=== PATIENT | female | born 1995 | race Caucasian/White ===

== ENCOUNTER 2017-07-23 20:18 | Emergency (ER) | payer SELFPAY | END 2017-07-23 21:03 | disposition left against medical advice (07) | LOC: E/R 20:18 | DX: Z53.21 Procedure and treatment not carried out due to patient leaving prior to being seen by health care provider (principal) ==

== ENCOUNTER 2017-07-23 21:12 | Emergency (ER) | payer SELFPAY ==
[~2017-07-23] VITALS: Ht 167.6 cm; Wt 63.0 kg
[2017-07-23 21:17] VITALS: Ht 167.6 cm; Wt 63.0 kg
--- NOTE | 2017-07-23 22:40 | RADRPT ---
PROCEDURE: XR Chest. CLINICAL INDICATION: Cough. TECHNIQUE: Single frontal view of the chest was obtained COMPARISON: None FINDINGS: The heart and mediastinum are within normal limits. The lungs are clear. There is no pleural effusion or pneumothorax. Orthopedic hardware is noted in the lumbar spine. IMPRESSION: 1. No acute cardiopulmonary disease. RPTAT:AAJJ Physician Nemo Date Time Electronically viewed and signed by Gabriel Norwood Physician on 07/23/2017 22:40 QL/
[2017-07-23 22:56] LABS: ABNORMAL IP MESSAGE 1; HEMATOCRIT 20.5 % (37.0-47.0); MEAN CORPUSCULAR HEMOGLOBIN 35.4 pg (29.0-33.0); MEAN CORPUSCULAR HGB CONC 30.2 g/dl (32.0-37.0); MEAN CORPUSCULAR VOLUME 117.1 fl (82.0-101.0); MEAN PLATELET VOLUME 10.8 fl (7.4-10.4); NUCLEATED RED BLOOD CELLS% 0.3 /100WBC (0.0-0.0); PLATELET COUNT 297 10^3/UL (140-415); RED BLOOD COUNT 1.75 10^6/ul (4.20-5.40); RED CELL DISTRIBUTION WIDTH 24.4 % (11.5-14.5); WHITE BLOOD COUNT 7.1 10^3/ul (4.8-10.8)
[2017-07-23 23:03] LABS: HEMOGLOBIN 6.2 g/dl (12.0-16.0); POSITIVE DIFF @See below
[2017-07-23 23:05] LABS: PATH REVIEW? YES-PATH TO CONFIRM
--- NOTE | 2017-07-23 23:09 | ERD ---
ER Documentation Chief Complaint Chief Complaint swelling both arms, both foot HPI The patient is a 22-year-old female, presenting to the ER because of bilateral upper extremity swelling since , not get better after she delivered a baby about a week ago. She also complained of bilateral upper extremity swelling for about a week . She denies fever, chills, neck pain, chest pain, dyspnea, abdominal pain, vomiting, dysuria, diarrhea. She complains of persistent vaginal spotting after vaginal delivery. She smokes, denies drinking , has history of intravenous heroin abuse. 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 Allergies Allergies: Coded Allergies: No Known Allergy (Unverified , 07/23/17) PMhx/Soc Medical and Surgical Hx: pt denies Medical Hx, pt denies Surgical Hx Hx Alcohol Use: No Hx Substance Use: No Hx Tobacco Use: No Smoking Status: Never smoker Physical Exam Vitals Vital Signs Date Time Temp Pulse Resp B/P Pulse Ox O2 Delivery O2 Flow Rate FiO2 07/23/17 21:17 98.2 121 20 142/91 100 Physical Exam Const: No acute distress. Head: Atraumatic. Eyes: Normal Conjunctiva. ENT: Normal External Ears, Nose and Mouth. Neck: Full range of motion. No meningismus. Resp: Clear to auscultation bilaterally. Cardio: Regular rate and rhythm. Abd: Soft, non distended, normal bowel sounds, non tender. Skin: No petechiae or rashes. Back: No midline or flank tenderness. Ext: Normal bilateral upper extremity edema, nontender. Moderate bilateral lower extremity edema, warmth, mild bilateral calf tenderness Neur: Awake and alert. No focal deficit Psych: Normal Mood and Affect. Result Diagram: 07/23/17219907/23/172199 Results 24 hrs Laboratory Tests Test 07/23/17 22:00 07/23/17 22:22 07/23/17 23:50 White Blood Count 7.110^3/ul Red Blood Count 1.7510^6/ul Hemoglobin 6.2g/dl Hematocrit 20.5% Mean Corpuscular Volume 117.1fl Mean Corpuscular Hemoglobin 35.4pg Mean Corpuscular Hemoglobin Concent 30.2g/dl Red Cell Distribution Width 24.4% Platelet Count 63951^3/UL Mean Platelet Volume 10.8fl Neutrophils % % Segmented Neutrophils % (Manual) 71% Band Neutrophils % (Manual) 1% Lymphocytes % % Lymphocytes % (Manual) 20% Monocytes % % Monocytes % (Manual) 8% Eosinophils % % Basophils % % Nucleated Red Blood Cells % 0.3/100WBC Neutrophils # 10^3/ul Neutrophils # (Manual) 5.010^3/ul Band Neutrophils # 0.010^3/ul Absolute Lymphocytes (Manual) 1.410^3/ul Lymphocytes # 1.410^3/ul Monocytes # 0.610^3/ul Absolute Monocytes (Manual) 0.510^3/ul Eosinophils # 10^3/ul Basophils # 10^3/ul Nucleated Red Blood Cells # 10^3/ul Pathologist Review (Hematology) YES-PATH TO CONFIRM Platelet Estimate NORMAL Polychromasia FEW Anisocytosis 2+ Macrocytosis 1+ Tear Drop Cells FEW Ovalocytes FEW Sodium Level 139mmol/L Potassium Level 4.9mmol/L Chloride Level 105mmol/L Carbon Dioxide Level 26mmol/L Anion Gap 13 Blood Urea Nitrogen 16mg/dl Creatinine 0.67mg/dl Glucose Level 92mg/dl Calcium Level 9.1mg/dl Total Bilirubin 0.2mg/dl Direct Bilirubin 0.00mg/dl Indirect Bilirubin 0.2mg/dl Aspartate Amino Transf (AST/SGOT) 43IU/L Alanine Aminotransferase (ALT/SGPT) 57IU/L Alkaline Phosphatase 115IU/L Total Protein 6.0g/dl Albumin 2.7g/dl Globulin 3.30g/dl Albumin/Globulin Ratio 0.81 Urine Color YELLOW Urine Clarity CLEAR Urine pH 8.0 Urine Specific [place] 1.017 Urine Ketones NEGATIVEmg/dL Urine Nitrite NEGATIVEmg/dL Urine Bilirubin NEGATIVEmg/dL Urine Urobilinogen NEGATIVEmg/dL Urine Leukocyte Esterase TRACELeu/ul Urine Microscopic RBC 26/HPF Urine Microscopic WBC 36/HPF Urine Bacteria FEW/HPF Urine Hemoglobin 2+mg/dL Urine Glucose NEGATIVEmg/dL Urine Total Protein 2+mg/dl Prothrombin Time 12.1Sec Prothrombin Time Ratio 0.9 INR International Normalized Ratio 0.89 Activated Partial Thromboplast Time 21.7Sec Lactic Acid Level 1.8mmol/L [facility] [place] [id number] Radiology Main Line: [phone] DIAGNOSTIC IMAGING REPORT Patient: DIANN TRACY : 1995 Age: 22 Sex: F MR #: [id number] DOS: 07/23/17 2143 Ordering MD: PATT PROCTOR PA-Alanna Location: [facility] Room/Bed: PROCEDURE: XR Chest. CLINICAL INDICATION: Cough. TECHNIQUE: Single frontal view of the chest was obtained COMPARISON: None FINDINGS: The heart and mediastinum are within normal limits. The lungs are clear. There is no pleural effusion or pneumothorax. Orthopedic hardware is noted in the lumbar spine. IMPRESSION: 1. No acute cardiopulmonary disease. RPTAT:AAJJ Physician Nemo Date Time Electronically viewed and signed by Gabriel Norwood Physician on 07/23/2017 22:40 QL/ CC: PATT PROCTOR [place] [id number] Radiology Main Line: [phone] DIAGNOSTIC IMAGING REPORT Patient: DIANN TRACY : 1995 Age: 22 Sex: F MR #: [id number] DOS: 07/24/17 0122 Ordering MD: JOSHUA VANCE MD Location: [facility] Room/Bed: PROCEDURE: CT Abdomen and Pelvis without contrast. CLINICAL INDICATION: pain. TECHNIQUE: CT scan of the abdomen and pelvis without contrast was performed on a multidetector high-resolution CT scanner. The patient was scanned without intravenous contrast. Coronal and sagittal reformatted images were obtained from the axial source images. Images were reviewed on a high-resolution PACS workstation. The total exam CTDI equals 6.38 mGy and the total exam DLP equals 368.19 mGy-cm. DICOM images are available. One or more of the following dose reduction techniques were used: - Automated exposure control. - Adjustment of the mA and/or kV according to patient size. - Use of iterative reconstruction technique. COMPARISON: None. FINDINGS: CT abdomen: The lung bases are clear. The heart size is normal. There is a pericardial effusion measuring at least 18 mm in transverse dimension. Findings are present on axial and sagittal images 11 and 74 respectively. The liver is enlarged measuring 19 cm in long dimension. No focal mass or intrahepatic biliary dilatation. The spleen is enlarged measuring 14 cm in long dimension. The stomach is mildly distended containing large amounts of retained debris. The pancreas as visualized is normal. The gallbladder and biliary tree are unremarkable and there is no evidence for biliary dilatation. The adrenal glands are symmetric and normal. The kidneys are symmetrically unremarkable as well. No renal calculus or obstructive uropathy or mass lesion is seen. The aorta is of normal caliber. There is no retroperitoneal lymphadenopathy. The senthil hepatis region is clear. The bowel and mesentery, as visualized, are equally unremarkable. CT pelvis: The small bowel loops situated within the pelvis are unremarkable. The pelvic organs are normal. The pelvic sidewalls and inguinal regions are clear. The sigmoid colon and rectum are unremarkable. No mass or lymphadenopathy is seen. No acute inflammation is seen. A small amount of free fluid is present inferior to the right hepatic lobe. Moderate amount of hypodense fluid is present within the pelvis. An enlarged uterus is noted. Posterior fusion L1-L4 with bilateral transpedicular screws and vertical rods. Severe disc space loss L4-5 with endplate degenerative changes and a partially calcified disc protrusion measuring 5 mm. IMPRESSION: 1. Hepatosplenomegaly. 2. Pericardial effusion. 3. Enlarged uterus. 4. Nonspecific free fluid located caudal to the inferior right hepatic margin and within the pelvis. 5. Posterior fusion L1 - L4. 6. L4-5: Severe disc space loss with endplate degenerative changes and a partially calcified disc protrusion measuring 5 mm. Call report: Results of this examination called by this radiologist to Dr. Joshua Vance at 02:58 a.m. on 07/24/2017. RPTAT: HRSR Physician Wilbur Date Time Electronically viewed and signed by Physician Wilbur on 07/24/2017 02 :59 RR/ CC: JOSHUA VANCE MD [place] [id number] Radiology Main Line: [phone] DIAGNOSTIC IMAGING REPORT Patient: DIANN TRACY : 1995 Age: 22 Sex: F MR #: [id number] DOS: 07/24/17 2319 Ordering MD: JOSHUA VANCE MD Location: [facility] Room/Bed: PROCEDURE: US Pelvis. CLINICAL INDICATION: Pain, vaginal bleeding, 1 week TECHNIQUE: Multiple sonographic images of the pelvis were obtained utilizing a transabdominal technique. The images were reviewed on a PACS workstation. COMPARISON: None. FINDINGS: The uterus measures 13.7 x 7.7 x 9.7 cm. The thickness of the endometrium equals 2.4 cm. There is heterogeneity of endometrial echotexture. There is suggestion of likely blood products in the endometrial cavity. No definite vascular flow suggestive of retained products of conception is seen in the endometrium. The right ovary measures 3.8 x 1.5 x 1.7 cm and is unremarkable. The left ovary measures 3.1 x 1.3 x 2.3 cm and is unremarkable. Color flow and spectral analysis demonstrates normal arterial and venous flow in both ovaries. No adnexal mass is seen. Small to moderate amount of free fluid in right lower quadrant. No free fluid is seen in Morison's pouch. IMPRESSION: Large uterus. The thickness of the endometrium equals 2.4 cm. There is heterogeneity of endometrial echotexture. There is suggestion of likely blood products in the endometrial cavity. No definite vascular flow suggestive of retained products of conception is seen in the endometrium. Small to moderate amount of free fluid in the right lower quadrant of abdomen. Please see above. RPTAT: HJES .Suraj Simeon MD, Date Time Electronically viewed and signed by .Suraj Simeon MD, on 07/24/2017 01:36 .S/ CC: JOSHUA VANCE MD [place] [id number] Radiology Main Line: [phone] DIAGNOSTIC IMAGING REPORT Patient: DIANN TRACY : 1995 Age: 22 Sex: F MR #: [id number] DOS: 07/24/172318 Ordering MD: JOSHUA VANCE MD Location: [facility] Room/Bed: PROCEDURE: US upper extremity Venous bilateral. CLINICAL INDICATION: Bilateral arm edema, pain TECHNIQUE: Multiple sonographic images of the bilateral upper extremity venous system was obtained utilizing grayscale, color-flow, compressive sonography and doppler imaging with augmentation. The images were reviewed on a PACS workstation. COMPARISON: None. FINDINGS: There is normal compressibility and flow within the bilateral internal jugular vein, subclavian vein, axillary vein, brachial, basilic,, radial and ulnar veins and in the left cephalic vein. There is noncompressible occlusive thrombus in the cephalic vein in the right upper arm. There is no evidence of thrombus in the cephalic vein in the right forearm IMPRESSION: Noncompressible occlusive thrombus in the cephalic vein in the right upper arm. Otherwise no evidence of thrombus in the veins of bilateral upper extremities. RPTAT: HJES .Suraj Simeon MD, MD Date Time Electronically viewed and signed by .Suraj Simeon MD, MD on 07/24/2017 00:45 .S/ CC: JOSHUA VANCE MD [place] [id number] Radiology Main Line: [phone] DIAGNOSTIC IMAGING REPORT Patient: DIANN TRACY : 1995 Age: 22 Sex: F MR #: [id number] DOS: 07/24/172318 Ordering MD: JOSHUA VANCE MD Location: [facility] Room/Bed: PROCEDURE: Ultrasound examination of bilateral lower extremities veins with Doppler. CLINICAL INDICATION: Leg pain and swelling. TECHNIQUE: Multiple sonographic images of bilateral lower extremity venous systems were performed with grullon scale and color Doppler. COMPARISON: None. FINDINGS: Bilateral common femoral, superficial femoral and popliteal veins demonstrate normal color flow, waveforms, compression and response to augmentation. There is no evidence of deep venous thrombosis. IMPRESSION: No evidence of deep venous thrombosis within bilateral lower extremities. .Panchito Thurston MD, Date Time Electronically viewed and signed by .Panchito Thurston MD, on 07/24/2017 01:14 .T/ CC: JOSHUA VANCE MD MEDICAL MAKING DECISION: The patient is a 22-year-old female, presenting with acute bilateral lower extremity cellulitis, acute cephalic vein thrombus, acute pericardial effusion, persistent vaginal bleeding after delivery, symptomatic anemia, hepatosplenomegaly. She was treated with clindamycin IV for acute bilateral cellulitis The differential diagnoses considered include but are not limited to pneumonia, cellulitis, DVT, endocarditis, recurrent cellulitis of the spine Consultation: I discussed the patient with the on-call tool room lathe operator , came to the ER to evaluate patient. She does not think the patient required emergent D&C Departure Diagnosis: Primary Impression: Symptomatic anemia Additional Impressions: Pericardial effusion Cephalic vein thrombosis Vaginal bleeding Hepatosplenomegaly Condition: Stable Comments I discussed the findings with the patient. I discussed the patient with the hospitalist Dr. Madison at 3:10 AM who was made aware of the lab, the treatment, the patient condition. The patient is admitted to telemetry The patient's blood pressure was elevated (>120/80) but appears stable without evidence of hypertension emergency or urgency. The patient was counseled about the risks of hypertension and urged to pursue outpatient monitoring and therapy within a week with their primary care physician. Disclaimer: Inadvertent spelling and grammatical errors are likely due to EHR/ dictation software use and do not reflect on the overall quality of patient care. Also, please note that the electronic time recorded on this note does not necessarily reflect the actual time of the patient encounter. JOSHUA VANCE MD Jul 23, 2017 23:09
[2017-07-23 23:15] LABS: ALBUMIN 2.7 g/dl (3.3-4.9); ALBUMIN/GLOBULIN RATIO 0.81; BILIRUBIN,INDIRECT 0.2 mg/dl (0-1.1); BILIRUBIN,TOTAL 0.2 mg/dl (0.2-1.3); CALCIUM 9.1 mg/dl (8.4-10.2); CREATININE 0.67 mg/dl (0.44-1.00); POTASSIUM 4.9 mmol/L (3.5-5.1)
[2017-07-23 23:22] LABS: ADD UMIC YES; UR ASCORBIC ACID NEGATIVE (NEGATIVE); UR BACTERIA FEW /HPF (NONE SEEN); UR BILIRUBIN (Dip) NEGATIVE (NEGATIVE); UR BLOOD (Dip) 2+ mg/dL (NEGATIVE); UR CLARITY CLEAR (CLEAR); UR COLOR YELLOW (YELLOW); UR GLUCOSE (Dip) NEGATIVE (NEGATIVE); UR KETONES (Dip) NEGATIVE (NEGATIVE); UR LEUKOCYTE ESTERASE (Dip) TRACE Leu/ul (NEGATIVE); UR NITRITE (Dip) NEGATIVE (NEGATIVE); UR RBC 26 /HPF (0-5); UR SPECIFIC GRAVITY (Dip) 1.017 (1.003-1.030); UR TOTAL PROTEIN (Dip) 2+ mg/dl (NEGATIVE); UR UROBILINOGEN (Dip) NEGATIVE (NEGATIVE)
[2017-07-24 00:29] LABS: INR 0.89; PROTIME 12.1 Sec (11.9-14.9); PT RATIO 0.9
[2017-07-24 00:30] LABS: PARTIAL THROMBOPLASTIN TIME 21.7 Sec (25.0-35.0)
--- NOTE | 2017-07-24 00:45 | RADRPT ---
PROCEDURE: US upper extremity Venous bilateral. CLINICAL INDICATION: Bilateral arm edema, pain TECHNIQUE: Multiple sonographic images of the bilateral upper extremity venous system was obtained utilizing grayscale, color-flow, compressive sonography and doppler imaging with augmentation. The images were reviewed on a PACS workstation. COMPARISON: None. FINDINGS: There is normal compressibility and flow within the bilateral internal jugular vein, subclavian vein , axillary vein, brachial, basilic,, radial and ulnar veins and in the left cephalic vein. There is noncompressible occlusive thrombus in the cephalic vein in the right upper arm. There is no evidenc e of thrombus in the cephalic vein in the right forearm IMPRESSION: Noncompressible occlusive thrombus in the cephalic vein in the right upper arm. Otherwise no evidenc e of thrombus in the veins of bilateral upper extremities. RPTAT: HJES .Suraj Simeon MD, Date Time Electronically viewed and signed by .Suraj Simeon MD, on 07/24/2017 00:45 .S/
--- NOTE | 2017-07-24 01:15 | RADRPT ---
PROCEDURE: Ultrasound examination of bilateral lower extremities veins with Doppler. CLINICAL INDICATION: Leg pain and swelling. TECHNIQUE: Multiple sonographic images of bilateral lower extremity venous systems were performed with grullon scale and color Doppler. COMPARISON: None. FINDINGS: Bilateral common femoral, superficial femoral and popliteal veins demonstrate normal color flow, wav eforms, compression and response to augmentation. There is no evidence of deep venous thrombosis. IMPRESSION: No evidence of deep venous thrombosis within bilateral lower extremities. .Panchito Thurston MD, MD Date Time Electronically viewed and signed by .Panchito Thurston MD, MD on 07/24/2017 01:14 .T/
--- NOTE | 2017-07-24 01:36 | RADRPT ---
PROCEDURE: US Pelvis. CLINICAL INDICATION: Pain, vaginal bleeding, 1 week TECHNIQUE: Multiple sonographic images of the pelvis were obtained utilizing a transabdominal tech nique. The images were reviewed on a PACS workstation. COMPARISON: None. FINDINGS: The uterus measures 13.7 x 7.7 x 9.7 cm. The thickness of the endometrium equals 2.4 cm. There is he terogeneity of endometrial echotexture. There is suggestion of likely blood products in the endometr ial cavity. No definite vascular flow suggestive of retained products of conception is seen in the e ndometrium. The right ovary measures 3.8 x 1.5 x 1.7 cm and is unremarkable. The left ovary measures 3.1 x 1.3 x 2.3 cm and is unremarkable. Color flow and spectral analysis demonstrates normal arter ial and venous flow in both ovaries. No adnexal mass is seen. Small to moderate amount of free flui d in right lower quadrant. No free fluid is seen in Morison's pouch. IMPRESSION: Large uterus. The thickness of the endometrium equals 2.4 cm. There is heterogeneity of e ndometrial echotexture. There is suggestion of likely blood products in the endometrial cavity. No d efinite vascular flow suggestive of retained products of conception is seen in the endometrium. Smal l to moderate amount of free fluid in the right lower quadrant of abdomen. Please see above. RPTAT: HJES .Suraj iSmeon MD, MD Date Time Electronically viewed and signed by .Suraj Simeon MD, MD on 07/24/2017 01:36 .S/
[2017-07-24 02:52] LABS: LYMPHOCYTES # 1.4 10^3/ul (0.8-2.9); MONOCYTE # 0.6 10^3/ul (0.3-0.9); MONOCYTES % (M) 8 % (0-11)
[2017-07-24 02:54] LABS: PLATELET ESTIMATE NORMAL
[2017-07-24 02:56] LABS: ANISOCYTOSIS 2+ (0-0)
[2017-07-24 02:57] LABS: OVALOCYTES FEW (0-0); TEAR DROP CELLS FEW (0-0)
[2017-07-24 02:59] LABS: POLYCHROMASIA FEW (0-0)
--- NOTE | 2017-07-24 02:59 | RADRPT ---
PROCEDURE: CT Abdomen and Pelvis without contrast. CLINICAL INDICATION: pain. TECHNIQUE: CT scan of the abdomen and pelvis without contrast was performed on a multidetector hig h-resolution CT scanner. The patient was scanned without intravenous contrast. Coronal and sagittal reformatted images were obtained from the axial source images. Images were reviewed on a high-resol [employer] PACS workstation. The total exam CTDI equals 6.38 mGy and the total exam DLP equals 368.19 mGy -cm. DICOM images are available. One or more of the following dose reduction techniques were used: - Automated exposure control. - Adjustment of the mA and/or kV according to patient size. - Use of iterative reconstruction technique. COMPARISON: None. FINDINGS: CT abdomen: The lung bases are clear. The heart size is normal. There is a pericardial effusion measuring at le ast 18 mm in transverse dimension. Findings are present on axial and sagittal images 11 and 74 respe ctively. The liver is enlarged measuring 19 cm in long dimension. No focal mass or intrahepatic biliary dila tation. The spleen is enlarged measuring 14 cm in long dimension. The stomach is mildly distended c ontaining large amounts of retained debris. The pancreas as visualized is normal. The gallbladder a nd biliary tree are unremarkable and there is no evidence for biliary dilatation. The adrenal gland s are symmetric and normal. The kidneys are symmetrically unremarkable as well. No renal calculus or obstructive uropathy or mass lesion is seen. The aorta is of normal caliber. There is no retroperitoneal lymphadenopathy. The senthil hepatis r egion is clear. The bowel and mesentery, as visualized, are equally unremarkable. CT pelvis: The small bowel loops situated within the pelvis are unremarkable. The pelvic organs are normal. T he pelvic sidewalls and inguinal regions are clear. The sigmoid colon and rectum are unremarkable. No mass or lymphadenopathy is seen. No acute inflammation is seen. A small amount of free fluid is present inferior to the right hepatic lobe. Moderate amount of hypodense fluid is present within th e pelvis. An enlarged uterus is noted. Posterior fusion L1-L4 with bilateral transpedicular screws and vertical rods. Severe disc space los s L4-5 with endplate degenerative changes and a partially calcified disc protrusion measuring 5 mm. IMPRESSION: 1. Hepatosplenomegaly. 2. Pericardial effusion. 3. Enlarged uterus. 4. Nonspecific free fluid located caudal to the inferior right hepatic margin and within the pelvis . 5. Posterior fusion L1 - L4. 6. L4-5: Severe disc space loss with endplate degenerative changes and a partially calcified disc pr otrusion measuring 5 mm. Call report: Results of this examination called by this radiologist to Dr. Joshua De at 02:58 a. m. on 07/24/2017. RPTAT: HRSR Physician Wilbur Date Time Electronically viewed and signed by Cindy Quarles Physician on 07/24/2017 02:59 RR/
--- NOTE | 2017-07-24 03:31 | CONS ---
Date/Time of Note Date/Time of Note DATE: 07/24/17 TIME: 03:25 Assessment/Plan Assessment/Plan Additional Assessment/Plan 22 y/o s/p 1 week ago with anemia. Patient was likely anemia prior to delivery with acute blood loss during delivery. Bleeding and US findings are appropriate. Will admit for transfusion. Consult as needed. Consultation Date/Type/Reason Admit Date/Time Reason for Consultation Anemia s/p Hx of Present Illness 22 y/o s/p 1 week ago at [facility]. Patient presented with bilateral lower extremity swelling. Reports bleeding is not excessive, using 5-6 pad daily since delivery. Reports anemia during the . No f/c/n/v. Patient has h/o substance abuse, planning to go to Rehab. Per HPI. Other systems negative. Past Medical History Denies Past Surgical History Back surgery Family History Significant Family History: no pertinent family hx Social History Smoking Status: Never smoker Other Social History Multisubstance use Exam/Review of Systems Vital Signs Vitals Vital Signs Date Time Temp Pulse Resp B/P Pulse Ox O2 Delivery O2 Flow Rate FiO2 07/23/17 21:17 98.2 121 20 142/91 100 Exam Gen: NAD HEENT: NCAT CV: RRR Pulm: CTAB Abd: FF Back: no CVAT Ext: NT Results Result Diagram: 07/23/17219907/23/172199 Results 24 hrs Laboratory Tests Test 07/23/17 22:00 07/23/17 22:22 07/23/17 23:50 White Blood Count 7.1 Red Blood Count 1.75 L Hemoglobin 6.2 *L Hematocrit 20.5 L Mean Corpuscular Volume 117.1 H Mean Corpuscular Hemoglobin 35.4 H Mean Corpuscular Hemoglobin Concent 30.2 L Red Cell Distribution Width 24.4 H Platelet Count 297 Mean Platelet Volume 10.8 H Neutrophils % Segmented Neutrophils % (Manual) 71 Band Neutrophils % (Manual) 1 Lymphocytes % Lymphocytes % (Manual) 20 Monocytes % Monocytes % (Manual) 8 Eosinophils % Basophils % Nucleated Red Blood Cells % 0.3 H Neutrophils # Neutrophils # (Manual) 5.0 Band Neutrophils # 0.0 Absolute Lymphocytes (Manual) 1.4 Lymphocytes # 1.4 Monocytes # 0.6 Absolute Monocytes (Manual) 0.5 Eosinophils # Basophils # Nucleated Red Blood Cells # Pathologist Review (Hematology) YES-PATH TO CONFIRM Platelet Estimate NORMAL Polychromasia FEW Anisocytosis 2+ Macrocytosis 1+ Tear Drop Cells FEW Ovalocytes FEW Sodium Level 139 Potassium Level 4.9 Chloride Level 105 Carbon Dioxide Level 26 Anion Gap 13 Blood Urea Nitrogen 16 Creatinine 0.67 Glucose Level 92 Calcium Level 9.1 Total Bilirubin 0.2 Direct Bilirubin 0.00 Indirect Bilirubin 0.2 Aspartate Amino Transf (AST/SGOT) 43 Alanine Aminotransferase (ALT/SGPT) 57 Alkaline Phosphatase 115 Total Protein 6.0 L Albumin 2.7 L Globulin 3.30 H Albumin/Globulin Ratio 0.81 Urine Color YELLOW Urine Clarity CLEAR Urine pH 8.0 Urine Specific [place] 1.017 Urine Ketones NEGATIVE Urine Nitrite NEGATIVE Urine Bilirubin NEGATIVE Urine Urobilinogen NEGATIVE Urine Leukocyte Esterase TRACE A Urine Microscopic RBC 26 H Urine Microscopic WBC 36 H Urine Bacteria FEW A Urine Hemoglobin 2+ H Urine Glucose NEGATIVE Urine Total Protein 2+ H Prothrombin Time 12.1 Prothrombin Time Ratio 0.9 INR International Normalized Ratio 0.89 Activated Partial Thromboplast Time 21.7 L Lactic Acid Level 1.8 Imaging Free Text/Dictation Pelvic US: The uterus measures 13.7 x 7.7 x 9.7 cm. The thickness of the endometrium equals 2.4 cm. There is heterogeneity of endometrial echotexture. There is suggestion of likely blood products in the endometrial cavity. No definite vascular flow suggestive of retained products of conception is seen in the endometrium. The right ovary measures 3.8 x 1.5 x 1.7 cm and is unremarkable. The left ovary measures 3.1 x 1.3 x 2.3 cm and is unremarkable. Color flow and spectral analysis demonstrates normal arterial and venous flow in both ovaries. No adnexal mass is seen. Small to moderate amount of free fluid in right lower quadrant. No free fluid is seen in Morison's pouch. ROSE CARPENTER. Jul 24, 2017 03:31
[2017-07-24] MEDS ORDERED: CLINDAMYCIN 600 MG/D5W (PMX) 50 ML IVPB SCH (04:30)
== END 2017-07-24 04:15 | disposition left against medical advice (07) ==
LOC: FTE 21:12
DX: O90.81 Anemia of the puerperium (principal); I31.3 Pericardial effusion (noninflammatory); I82.613 Acute embolism and thrombosis of superficial veins of upper extremity, bilateral; R16.2 Hepatomegaly with splenomegaly, not elsewhere classified; O99.53 Diseases of the respiratory system complicating the puerperium; O72.2 Delayed and secondary postpartum hemorrhage; O26.62 Liver and biliary tract disorders in childbirth
CPT/HCPCS: 71010; 74176; 76856; 80053; 81001; 83605; 85025; 85610; 85730; 86850; 86900; 86901; 86920; 87040; 87086; 93970

== ENCOUNTER 2018-10-29 05:39 | Emergency (ER) | payer BC, MEDICAID ==
[~2018-10-29] VITALS: Wt 65.3 kg
[2018-10-29] MEDS ORDERED: LORAZEPAM 2 MG INJ IM STA (06:58)
[2018-10-29] MEDS ORDERED: HALOPERIDOL 5 MG INJ IM STA (06:58)
[2018-10-29] MEDS ORDERED: DIPHENHYDRAMINE 50 MG INJ IM ONE (07:00)
[2018-10-29] MEDS ORDERED: OLANZAPINE 10 MG VIAL IM ONE (08:30)
--- NOTE | 2018-10-29 08:55 | ERD ---
ER Documentation Chief Complaint Chief Complaint DIZZINESS X'S 2 DAYS HPI This is a 23-year-old female that was brought into the emergency department initially complaining of dizziness. She indicates that the dizziness has been present for 48 hours after [facility]. She indicates she has been in rehab and had a history of amphetamine abuse and heroin abuse. The patient had been in the triage department of the emergency room going through garbage, screaming and stating that her daughter was sitting with strangers. When I went to the bedside to evaluate the patient she was rambling with multiple complaints but denied any chest pain. She denied a headache. She denies shortness of breath. She kept stating that her father has custody of her child but she saw her child in the emergency department with a stranger. She also indicated that she has a twin sister who was murdered. She was stating that she feels everybody is out to get her and did not want anybody touching her. She denied any trauma. There is no drug paraphernalia. ROS All systems reviewed and are negative except as per history of present illness. Medications Home Meds Reported Medications [none] Unknown Strength No Conflict Check 09/14/18 Allergies Allergies: Coded Allergies: No Known Allergy (Unverified , 10/29/18) PMhx/Soc History of Surgery: Yes (back) Anesthesia Reaction: No Hx Neurological Disorder: No Hx Respiratory Disorders: No Hx Cardiac Disorders: No Hx Psychiatric Problems: Yes (depression , anxiety ) Hx Miscellaneous Medical Probl: Yes (drug abuse ) Hx Alcohol Use: Yes (socially) Hx Substance Use: Yes (marijuana, cocaine) Hx Tobacco Use: Yes Smoking Status: Current some day smoker Physical Exam Vitals Vital Signs Date Temp Pulse Resp B/P (MAP) Pulse Ox O2 O2 Flow FiO2 Time Delivery Rate 10/29/18 97.2 110 20 133/81 99 05:43 (98) Physical Exam Constitutional:Well-developed. Well-nourished. Very agitated. HEENT:Normocephalic. Atraumatic.Pupils were 5 mm equal round reactive to light. Dry mucous membranes.No tonsillar exudates. Neck: No nuchal rigidity. No lymphadenopathy. No posterior cervical spine tenderness or step-offs. Respiratory: Not using accessory muscles of respiration.Lungs were clear to auscultation bilaterally. No rhonchi. No rales. No wheezing. Cardiovascular: Regular rate regular rhythm.No murmurs. No rubs were appreciated.S1, S2 normal. Distal pulses are palpable 2+ bilaterally. GI: Abdomen was soft. Nontender. Non Distended. No pulsatile abdominal masses or bruits. No rebound. No guarding. Bowel sounds were present and normal. Muscle skeletal: Full range of motion of both the upper and lower extremities bilaterally.Normal muscle tone.No assymetrical calf tenderness or swelling. Skin: No petechia, no purpura. No lesions on the palms or the soles of the feet. No maculopapular rash. NEURO: Patient was alert, awake, orientated x person place and time.No facial droop. Gait observed and normal with no ataxia.Speech had regular rate and rhythm. No focal neurological deficits. PSYCH: Patient was very agitated. She was screaming and paranoid. She felt t hat nursing staff and myself were out to get her. She started hitting people. She denied any suicidal ideations. She was experiencing homicidal thoughts that she stated she wanted to "kill the security analyst who stole her child." Result Diagram: 10/29/18 0808 10/29/18 0808 Results 24 hrs Laboratory Tests Test 10/29/18 07:44 10/29/18 07:45 10/29/18 08:08 Urine Color STRAW Urine Clarity CLEAR Urine pH 7.0 Urine Specific [place] 1.014 Urine Ketones NEGATIVE mg/dL Urine Nitrite NEGATIVE mg/dL Urine Bilirubin NEGATIVE mg/dL Urine Urobilinogen NEGATIVE mg/dL Urine Leukocyte Esterase TRACE Margarita/ul Urine Microscopic RBC 1 /HPF Urine Microscopic WBC 11 /HPF Urine Squamous Epithelial Cells FEW /HPF Urine Bacteria FEW /HPF Urine Hemoglobin 1+ mg/dL Urine Glucose NEGATIVE mg/dL Urine Total Protein NEGATIVE mg/dl Urine Opiates Screen Positive Urine Barbiturates Negative Urine Amphetamines Screen Positive Urine Benzodiazepines Screen Negative Urine Cocaine Screen Negative Urine Cannabinoids Positive POC Beta HCG, Qualitative NEGATIVE White Blood Count 4.1 10^3/ul Red Blood Count 3.79 10^6/ul Hemoglobin 10.8 g/dl Hematocrit 34.7 % Mean Corpuscular Volume 91.6 fl Mean Corpuscular Hemoglobin 28.5 pg Mean Corpuscular 31.1 g/dl Hemoglobin Concent Red Cell Distribution Width 21.2 % Platelet Count 83 10^3/UL Mean Platelet Volume 11.5 fl Immature Granulocytes % 0.200 % Neutrophils % 52.1 % Lymphocytes % 37.8 % Monocytes % 9.9 % Eosinophils % 0.0 % Basophils % 0.0 % Nucleated Red Blood Cells % 0.0 /100WBC Immature Granulocytes # 0.010 10^3/ul Neutrophils # 2.2 10^3/ul Lymphocytes # 1.6 10^3/ul Monocytes # 0.4 10^3/ul Eosinophils # 0.0 10^3/ul Basophils # 0.0 10^3/ul Nucleated Red Blood Cells # 0.0 10^3/ul Sodium Level 141 mmol/L Potassium Level 4.3 mmol/L Chloride Level 105 mmol/L Carbon Dioxide Level 26 mmol/L Anion Gap 10 Blood Urea Nitrogen 10 mg/dl Creatinine 0.53 mg/dl Est Glomerular Filtrat > 60 mL/min Rate mL/min Glucose Level 88 mg/dl Calcium Level 9.7 mg/dl Total Bilirubin 0.4 mg/dl Direct Bilirubin 0.00 mg/dl Indirect Bilirubin 0.4 mg/dl Aspartate Amino 49 IU/L Transf (AST/SGOT) Alanine 46 IU/L Aminotransferase (ALT/SGPT) Alkaline Phosphatase 74 IU/L Total Protein 7.7 g/dl Albumin 4.3 g/dl Globulin 3.40 g/dl Albumin/Globulin Ratio 1.26 Salicylates Level < 1.0 mg/dl Acetaminophen Level < 10.0 ug/ml Ethyl Alcohol Level < 10.0 mg/dl Current Medications Medications Dose Sig/Marlys Start Time Status Last (Trade) Ordered Route PRN Stop Time Admin Dose Reason Admin Lorazepam 2 mg ONCE STAT 10/29/18 DC 10/29/18 (Ativan) IM 06:58 08:08 10/29/18 07:00 Haloperidol 5 mg ONCE STAT 10/29/18 DC 10/29/18 (Haldol) IM 06:58 08:09 10/29/18 07:00 50 mg ONCE ONCE 10/29/18 DC 10/29/18 Diphenhydrami IM 07:00 08:08 ne HCl 10/29/18 07:01 (Benadryl) Olanzapine 10 mg ONCE ONCE 10/29/18 DC (Zyprexa) IM 08:30 10/29/18 08:31 Procedures/MDM This patient presented to the emergency department with acute psychosis and my differential diagnosis included but was not limited to ruling out life threatening causes of acute psychosis such as Wernickes encephalopathy, hypoxia, hypoglycemia, hypertensive encephalopathy, intracerebral hemorrhage, meningitis, poisoning. After my evaluation and workup on the patient I was able to exclude medical and reversible causes of the patients psychosis. It was my clinical impression the patients symptoms were an exacerbation of a possible psychiatric disorder versus drug encephalopathy from amphetamine abuse as the patient's tox screen was positive for amphetamines.; therefore, the patient was medically cleared by myself at this time for psychiatric evaluation and possible transfer. The patient did become severely agitated during medical assessment. Reassurance and verbal de-escalation were unsuccessful in calming the patient down. The agitation was impeding medical evaluation and treatment, with potential for the patient to harm themselves or others; therefore, pharmacological sedation was required. She received IM Haldol Ativan and Benadryl. However this did not improve the patient symptoms that she was still screaming and attempting to leave the hospital. I felt the patient was a threat to herself and others as she was very violent. She received Zyprexa IM at this time. She was now resting comfortably. Departure Diagnosis: Primary Impression: Amphetamine abuse Additional Impression: Psychosis Psychosis type: unspecified psychosis type Qualified Codes: F29 - Unspecified psychosis not due to a substance or known physiological condition Condition: Serious CONCETTA OCONNOR MD Oct 29, 2018 08:55
--- NOTE | 2018-10-29 18:09 | PSY ---
Date/Time of Note Date/Time of Note DATE: 10/29/18 TIME: 21:03 Psychiatric Subjective Eval Consent Pt consented to telemedicine: Yes Subjective Evaluation Patient location: emergency Chief Complaint: DIZZINESS X'S 2 DAYS History of present illness HPI: 23 yo female with ho severe drug use, per attending note, "This is a 23-year-old female that was brought into the emergency department initially complaining of dizziness. She indicates that the dizziness has been present for 48 hours after she was [facility]. She indicates she has been in rehab and had a history of amphetamine abuse and heroin abuse. The patient had been in the triage department of the emergency room going through garbage, screaming and stating that her daughter was sitting with strangers. When I went to the bedside to evaluate the patient she was rambling with multiple complaints but denied any chest pain. She denied a headache. She denies shortness of breath. She kept stating that her father has custody of her child but she saw her child in the emergency department with a stranger. She also indicated that she has a twin sister who was murdered. She was stating that she feels everybody is out to get her and did not want anybody touching her. She denied any trauma. There is no drug paraphernalia." spoke with pt.She denies ah or psychosis, says she is just dizzy. Denies drug use. Denies si. Denies any problems. SAys she wants to go home. As per note above, and per nurse, pt came in very agitated, pressured speech, delusional, perseverating on daughter and the drugs she was using. Required IM meds due to agitation Past Psych Hx: reports that she is just on risperidone and is dizzy, was vague and evasive and somewhat disorganized PMHx: denies nkda Meds: reports "risperidone MSE: disheveled, appears in distress, numerous tattoos on arms, decreased prosody of speech, dysthymic, labile, vague slightly disorganized, evasive, denies psychosis or avh or si /hi impaired reliability/insight Imp: 23 yo female gravely disabled per hx and exam, impaired reliability recommend 5150 for now and further eval, parallel hx from father to obtain information about baseline utox uhcg For moderate agitation Zyprexa 5mg po prn For severe agitation chlorpromazine 25mg im prn Medical history Problems Medical Problems: (1) Amphetamine abuse Status: Acute (2) Cellulitis Status: Acute (3) Cephalic vein thrombosis Status: Acute (4) Dizziness Status: Acute (5) Head ache Status: Acute (6) Hepatosplenomegaly Status: Acute (7) Patient left before evaluation by physician Status: Acute (8) Patient left before triage assessment Status: Acute (9) Patient left without being seen Status: Acute (10) Pericardial effusion Status: Acute (11) Psychosis Status: Acute (12) Symptomatic anemia Status: Acute (13) Vaginal bleeding Status: Acute Allergies: Coded Allergies: No Known Allergy (Unverified , 10/29/18) Psychiatric Objective Eval Mental Status Examination: Laboratory Results Laboratory Tests Test 10/29/18 07:44 10/29/18 07:45 10/29/18 08:07 10/29/18 08:08 Urine Color STRAW Urine Clarity CLEAR Urine pH 7.0 Urine Specific 1.014 [place] Urine Ketones NEGATIVE mg/dL Urine Nitrite NEGATIVE mg/dL Urine Bilirubin NEGATIVE mg/dL Urine NEGATIVE mg/dL Urobilinogen Urine Leukocyte TRACE Margarita/ul Esterase Urine Microscopic 1 /HPF RBC Urine Microscopic 11 /HPF WBC Urine Squamous FEW /HPF Epithelial Cells Urine Bacteria FEW /HPF Urine Hemoglobin 1+ mg/dL Urine Glucose NEGATIVE mg/dL Urine Total NEGATIVE mg/dl Protein Urine Opiates Positive Screen Urine Negative Barbiturates Urine Positive Amphetamines Screen Urine Negative Benzodiazepines Screen Urine Cocaine Negative Screen Urine Positive Cannabinoids POC Beta HCG, NEGATIVE Qualitative Serum HCG, NEGATIVE Qualitative White Blood Count 4.1 10^3/ul Red Blood Count 3.79 10^6/ul Hemoglobin 10.8 g/dl Hematocrit 34.7 % Mean Corpuscular 91.6 fl Volume Mean Corpuscular 28.5 pg Hemoglobin Mean Corpuscular 31.1 g/dl Hemoglobin Concen t Red Cell 21.2 % Distribution Width Platelet Count 164 10^3/UL Mean Platelet 11.5 fl Volume Immature 0.200 % Granulocytes % Neutrophils % 52.1 % Segmented 48 % Neutrophils % (Manual) Lymphocytes % 37.8 % Lymphocytes % 37 % (Manual) Reactive 5 % Lymphocytes % (Manual) Monocytes % 9.9 % Monocytes % 10 % (Manual) Eosinophils % 0.0 % Basophils % 0.0 % Nucleated Red 0.0 /100WBC Blood Cells % Immature 0.010 10^3/ul Granulocytes # Neutrophils # 2.2 10^3/ul Lymphocytes 1.5 10^3/ul (Manual) Lymphocytes # 1.6 10^3/ul Reactive 0.2 10^3/ul Lymphocytes # Monocytes # 0.4 10^3/ul Monocytes # 0.4 10^3/ul (Manual) Eosinophils # 0.0 10^3/ul Basophils # 0.0 10^3/ul Nucleated Red 0.0 10^3/ul Blood Cells # Giant Platelets 1 % Platelet @See below Morphology Comment Polychromasia 3+ Poikilocytosis 2+ Anisocytosis 3+ Microcytosis 2+ Tear Drop Cells 1+ Ovalocytes 1+ Prothrombin Time 11.0 Sec Prothrombin Time 0.9 Ratio INR International 0.78 Normalized Ratio Activated 21.8 Sec Partial Thrombopl ast Time Sodium Level 141 mmol/L Potassium Level 4.3 mmol/L Chloride Level 105 mmol/L Carbon Dioxide 26 mmol/L Level Anion Gap 10 Blood Urea 10 mg/dl Nitrogen Creatinine 0.53 mg/dl Est Glomerular > 60 mL/min Filtrat Rate mL/min Glucose Level 88 mg/dl Calcium Level 9.7 mg/dl Total Bilirubin 0.4 mg/dl Direct Bilirubin 0.00 mg/dl Indirect 0.4 mg/dl Bilirubin Aspartate Amino 49 IU/L Transf (AST/SGOT) Alanine 46 IU/L Aminotransferase (ALT/SGPT) Alkaline 74 IU/L Phosphatase Total Protein 7.7 g/dl Albumin 4.3 g/dl Globulin 3.40 g/dl Albumin/Globulin 1.26 Ratio Salicylates Level < 1.0 mg/dl Acetaminophen < 10.0 ug/ml Level Ethyl Alcohol < 10.0 mg/dl Level Assessment and Plan Recommendation/Plan Multiple antipsychotics: No Discharge Disposition: Other Legal Status: Continue involuntary hold EFREM QUIÑONES Oct 29, 2018 18:09
[2018-10-30] MEDS ORDERED: MIDAZOLAM 1 MG/ML 2 ML INJ ONE (00:09)
[2018-10-30] MEDS ORDERED: MIDAZOLAM 1 MG/ML 2 ML INJ IM ONE (00:30)
--- NOTE | 2018-10-30 05:54 | EN ---
Date/Time of Note Date/Time of Note DATE: 10/30/18 TIME: 05:53 Event Note Medicine Medicine Event Note Observation Note: Time: 4 hours Family Hx: [Negative] for diabetes Evaluation: Patient became agitated, was given IM Versed, has remained medically stable. Awaiting for evaluation JAYSHREE GREENE MD Oct 30, 2018 05:54
[2018-10-30] MEDS ORDERED: HALOPERIDOL 5 MG INJ ONE (12:19)
[2018-10-30] MEDS ORDERED: LORAZEPAM 2 MG INJ IM ONE (12:30)
[2018-10-30] MEDS ORDERED: HALOPERIDOL 5 MG INJ IM ONE (12:30)
[2018-10-30] MEDS ORDERED: OLANZAPINE 10 MG VIAL IM ONE (12:30)
[2018-10-30 12:46] VITALS: BP 111/78; PULSE 106; RESP 17
== END 2018-10-30 12:50 ==
LOC: E/R 05:39
DX: F15.159 Other stimulant abuse with stimulant-induced psychotic disorder, unspecified (principal); F17.210 Nicotine dependence, cigarettes, uncomplicated
CPT/HCPCS: 80053; 80307; 81001; 81025; 84703; 85025; 85610; 85730; J1200; J1630; J2060; 96372; J2250

== ENCOUNTER 2019-02-02 02:59 | Emergency (ER) | payer BC, MEDICAID ==
[~2019-02-02] VITALS: Ht 170.2 cm; Wt 64.3 kg
[2019-02-02 03:05] VITALS: BP 131/58; PULSE 125; RESP 18; Ht 170.2 cm; Wt 64.3 kg
--- NOTE | 2019-02-02 04:56 | ERD ---
ER Documentation Chief Complaint Chief Complaint SORES ON FACE HPI This is a 24-year-old female who presents here the emergency department with complaints of sores to face for less than a week. Stated that this initially started when she started picking on her face, and felt like that this is infected. LMP: Last week. G4, P2 M1. Stated that 1 of her kids . Denies headache, head injury, loss of consciousness, dizziness, neck pain, neck stiffness, throat pain, difficulty swallowing, difficulty breathing lying flat, shoulder pain, chest pain, back pain, abdominal pain, nausea, vomiting, constipation, diarrhea, urinary symptoms, or possibility being , loss of bowel and bladder control, trauma, injury, falls, difficulty walking due to pain, numbness or tingling sensation, calf pain, recent travel, recent major surgery in the last 3 weeks, calf pain, recent long travel, recent exposure to any illness, recent antibiotic use in the last 3 months, fever, chills, seizures. Past medical history: Denies. Surgical history: Denies. Social: Denies smoking, use of alcoholic beverages, use of illegal drugs. ROS All systems reviewed and are negative except as per history of present illness. Medications Home Meds Active Scripts Diphenhydramine Hcl* (Benadryl*) 25 Mg Cap, 25 MG PO Q6 PRN for ITCHING/RASH, #30 TAB Prov:INDER CASTELLANOS 02/02/19 Mupirocin* (Bactroban*) 2% -22 Gram Oint...g., 1 APPLIC TOP BID for 7 Days, EA Prov:INDER CASTELLANOS 02/02/19 Amoxicillin/Potassium Clav (Amox-Clav 875-125 mg Tablet) 875-125 mg Tab, 1 TAB PO BID for 10 Days, #20 TAB Prov:INDER CASTELLANOS 02/02/19 Ibuprofen* (Motrin*) 600 Mg Tab, 600 MG PO Q8 PRN for PAIN AND OR ELEVATED TEMP, #30 TAB Prov:INDER CASTELLANOS 02/02/19 Allergies Allergies: Coded Allergies: No Known Allergy (Unverified , 10/29/18) PMhx/Soc History of Surgery: Yes (back) Anesthesia Reaction: No Hx Neurological Disorder: No Hx Respiratory Disorders: No Hx Cardiac Disorders: No Hx Psychiatric Problems: Yes (depression , anxiety ) Hx Miscellaneous Medical Probl: Yes (drug abuse ) Hx Alcohol Use: Yes (socially) Hx Substance Use: Yes (marijuana, cocaine) Hx Tobacco Use: Yes Smoking Status: Current every day smoker Physical Exam Vitals Vital Signs Date Temp Pulse Resp B/P (MAP) Pulse Ox O2 O2 Flow FiO2 Time Delivery Rate 02/02/19 97.3 125 18 131/58 97 03:05 (82) Physical Exam Const: No acute distress Head: Atraumatic Eyes: Normal Conjunctiva. No conjunctival injection. ENT: Normal External Ears, Nose and Mouth. Bilateral ear: TM is not erythematous. No bleeding. No discharge. No hearing loss. No mastoid tenderness. Nose: No nasal flaring. No signs of obstruction. Throat/Lips: No lip swelling. No tongue swelling. Able to control tongue movement. No drooling. Uvula is in midline and non-displaced. Tonsils are + 1 with no redness and no exudates. Tolerating secretions. Patent airway. Speaks full and clear sentences. No tripoding. No facial swelling. No drooling. No signs of angioedema. Neck: Full range of motion. No meningismus. Nuchal rigidity. No signs of meningeal irritation. Resp: Clear to auscultation bilaterally. No retraction noted. No accessory muscle use in breathing. Cardio: Regular rate and rhythm, no murmurs. Abd: Soft, non tender, non distended. Normal bowel sounds. No abdominal tenderness. Skin: No petechiae. Honey colored crusts noted to bilateral cheeks and close to outer lips. No vesicular lesions. Impetigo. Back: No midline or flank tenderness Ext: No cyanosis, or edema Neur: Awake and alert. No neurological deficit.. Psych: Normal Mood and Affect Results 24 hrs Current Medications Medications Dose Sig/Marlys Start Time Status Last (Trade) Ordered Route PRN Stop Time Admin Dose Reason Admin 875 mg ONCE ONCE 02/02/19 DC Amoxicillin/ PO 05:00 02/02/19 Clavulanate 05:01 Potassium (Augmentin) Ibuprofen 600 mg ONCE ONCE 02/02/19 DC (Motrin) PO 05:00 02/02/19 05:01 Procedures/MDM Diagnostic tests: Clinical exam. Treatment: Motrin. Augmentin. Re-evaluation: Not in distress. No drooling. Differential diagnosis I have low suspicion for anaphylactic shock, angioedema, airway obstruction, scabies, Alba-Jose L syndrome, shingles. Final diagnosis: Impetigo. Prescription: Augmentin. Bactroban. Motrin. Benadryl. Follow-up with PCP in the next 24-48 hours. PCP to refer patient to infant toddler lead teacher in the next 24 to 48 hours. Come back here in the emergency department for any new symptoms or any worsening symptoms. All questions and concerns were answered. Patient and family members verbalized understanding and agreed with plan of care. Hemodynamically stable on discharge. Departure Diagnosis: Primary Impression: Impetigo Additional Impression: Rash Condition: Stable Additional Instructions: Follow-up with PCP in the next 24-48 hours. PCP to refer patient to infant toddler lead teacher in the next 24 to 48 hours. Come back here in the emergency department for any new symptoms or any worsening symptoms. INDER CASTELLANOS Feb 02, 2019 04:56
[2019-02-02] MEDS ORDERED: IBUPROFEN 600 MG TAB PO ONE (05:00)
[2019-02-02] MEDS ORDERED: AMOXICILLIN/CLAV 875 MG TAB PO ONE (05:00)
[2019-02-02] MEDS ORDERED: AMOX1TAB10 PO (05:12)
[2019-02-02] MEDS ORDERED: IBUP-1542 PO (05:12)
[2019-02-02] MEDS ORDERED: MUPI22OI2 TOP (05:14)
[2019-02-02] MEDS ORDERED: BEN25 PO (05:15)
== END 2019-02-02 05:12 | disposition home or self-care (01) ==
LOC: FTE 02:59
DX: L01.00 Impetigo, unspecified (principal); F17.210 Nicotine dependence, cigarettes, uncomplicated
CPT/HCPCS: 99283

== ENCOUNTER 2019-03-18 01:38 | Emergency (ER) | payer BC, MEDICAID ==
[~2019-03-18] VITALS: Ht 171.4 cm; Wt 60.6 kg
[~2019-03-18 01:38] MED LIST: AMOX1TAB10 PO; BACITUD TOP; BEN25 PO; IBUP-1542 PO; MUPI22OI2 TOP
[2019-03-18 02:00] VITALS: BP 158/61; PULSE 117; RESP 20; Ht 171.4 cm; Wt 60.6 kg
== END 2019-03-18 05:18 | disposition home or self-care (01) ==
LOC: FTE 01:38
DX: R21 Rash and other nonspecific skin eruption (principal); F17.210 Nicotine dependence, cigarettes, uncomplicated
CPT/HCPCS: 99282

== ENCOUNTER 2019-05-24 03:32 | Emergency (ER) | payer BC, MEDICAID ==
[~2019-05-24] VITALS: Ht 167.6 cm; Wt 54.9 kg
[~2019-05-24 03:32] MED LIST changes: +AMOX500C2 PO; +ARIP5TAB14 PO; -BACITUD TOP; -BEN25 PO; +BENZ200C68 PO; +BUPR-165 PO; +HC30CR25 TOP; -IBUP-1542 PO; +NAPR-985 PO; +TRA100 PO
[2019-05-24 03:34] VITALS: BP 129/76; PULSE 97; RESP 18; Ht 167.6 cm; Wt 54.9 kg
== END 2019-05-24 04:40 | disposition home or self-care (01) ==
LOC: FTE 03:32
DX: J02.9 Acute pharyngitis, unspecified (principal); L73.9 Follicular disorder, unspecified; H66.91 Otitis media, unspecified, right ear; F17.210 Nicotine dependence, cigarettes, uncomplicated
CPT/HCPCS: 99283

== ENCOUNTER 2019-05-30 03:43 | Emergency (ER) | payer BC, MEDICAID ==
[~2019-05-30] VITALS: Ht 165.1 cm; Wt 53.3 kg
[2019-05-30 03:46] VITALS: BP 143/67; PULSE 104; RESP 20; Ht 165.1 cm; Wt 53.3 kg
== END 2019-05-30 05:15 | disposition home or self-care (01) ==
LOC: FTE 03:43
DX: H66.93 Otitis media, unspecified, bilateral (principal); F17.210 Nicotine dependence, cigarettes, uncomplicated
CPT/HCPCS: 99283